=== PATIENT | male | born 1965 | race Caucasian/White ===

== ENCOUNTER 2017-08-21 08:23 | Outpatient (CLI) | payer OTHER | END 2017-08-21 08:24 | disposition home or self-care (01) | LOC: NS 08:23 | PROVIDERS: ATTEND Family Medicine | DX: Z71.3 Dietary counseling and surveillance (principal); E66.9 Obesity, unspecified; Z68.41 Body mass index [BMI] 40.0-44.9, adult | CPT/HCPCS: 97802 ==

== ENCOUNTER 2017-09-04 10:28 | Outpatient (CLI) | payer OTHER | END 2017-09-04 10:29 | disposition home or self-care (01) | LOC: NS 10:28 | PROVIDERS: ATTEND Family Medicine | DX: Z71.3 Dietary counseling and surveillance (principal); E66.9 Obesity, unspecified; Z68.41 Body mass index [BMI] 40.0-44.9, adult | CPT/HCPCS: 97803 ==

== ENCOUNTER 2019-02-11 19:00 | Outpatient (CLI) | payer OTHER ==
--- NOTE | 2019-02-11 20:12 | XRAY Report ---
Reason: LEFT 3RD/4TH FINGER PAIN Procedure Date: 02/11/2019 Accession Number: [id number] / [id number] Procedure: XR - Hand 3 View LT CPT Code: FULL RESULT: EXAM: LEFT HAND RADIOGRAPHY EXAM DATE: 02/11/2019 07:12 PM. CLINICAL HISTORY: Left 3rd/4th finger pain. Crush injury tonight. COMPARISON: None. TECHNIQUE: 3 views. FINDINGS: Bones: No definite acute fracture or bone lesion. Joints: No subluxation. Mild to moderate degenerative changes third and fourth PIP joints, noting marginal spurring. A tiny periarticular calcification dorsal to the fourth DIP joint. Soft Tissues: Probable swelling of the digits. IMPRESSION: 1. No acute bony abnormality identified. Follow-up per clinical discretion. 2. Degenerative changes of the IP joints. [facility] The call report notification system was initiated by Dr. Bull Key at 08:10 PM on 02/11/2019. ADDENDUM: 02/11/19 20:29 The above results were called to the covering physician by Dr. Bull Key at 08:29 PM on 02/11/2019.
== END 2019-02-11 19:01 | disposition home or self-care (01) ==
LOC: DI 19:00
PROVIDERS: ATTEND Physician Assistant
DX: M19.042 Primary osteoarthritis, left hand (principal)

== ENCOUNTER 2019-02-17 10:17 | Outpatient (CLI) | payer OTHER ==
--- NOTE | 2019-02-17 11:58 | XRAY Report ---
Reason: FRACTURE OF LEFT PHALANX MIDDLE FINGER Procedure Date: 02/17/2019 Accession Number: [id number] / [id number] Procedure: WCP - Hand 3 View LT CPT Code: FULL RESULT: EXAM: LEFT HAND RADIOGRAPHY EXAM DATE: 02/17/2019 10:34 AM. CLINICAL HISTORY: Fracture of left phalanx middle finger. COMPARISON: HAND 3 VIEW LT 02/11/2019 7:05 PM. TECHNIQUE: 3 views. FINDINGS: Bones: Known definite fracture is identified in the third finger. One view irregularity of the distal metadiaphysis of the proximal third phalanx persists on the current and prior study. If point tenderness is in this region of the third finger, this may represent a nondisplaced fracture. Subtle osseous fragment dorsal to the fourth distal interphalangeal joint is also redemonstrated. Joints: Normal. No subluxations. Soft Tissues: Mild soft tissue swelling is seen about the proximal third finger. IMPRESSION: Please correlate persistent subtle one view irregularity about the distal metadiaphysis of the proximal third phalanx for focal point tenderness as described. [facility]
== END 2019-02-17 23:59 | disposition home or self-care (01) ==
LOC: DI.WCP 10:17 → EDSTATUS 12:37 → DI.WCP 23:59
PROVIDERS: ATTEND Family Medicine
DX: S62.603A Fracture of unspecified phalanx of left middle finger, initial encounter for closed fracture (principal)

== ENCOUNTER 2019-03-24 08:01 | Outpatient (CLI) | payer OTHER ==
--- NOTE | 2019-03-24 16:47 | XRAY Report ---
Reason: LEFT MIDDLE FINGER PHALANX FRACTURE Procedure Date: 03/24/2019 Accession Number: [id number] / [id number] Procedure: WCP - Finger(s) LT CPT Code: Final Report FULL RESULT: EXAM: LEFT THIRD DIGIT RADIOGRAPHY EXAM DATE: 03/24/2019 08:01 AM. CLINICAL HISTORY: Left middle finger phalanx fracture. COMPARISON: HAND 3 VIEW LT 02/17/2019 10:14 AM HAND 3 VIEW LT 02/11/2019 7:05 PM. TECHNIQUE: 3 views. FINDINGS: Bones: No new osseous remodeling or fracture lines are detected. No fracture or bone lesion. Joints: Degenerative changes with proliferative changes at tendons insertions are again seen at multiple interphalangeal joints including the third proximal phalangeal metadiaphysis. Soft Tissues: There is a 2 mm linear hyperdensity projecting over the lateral soft tissues of the thumb at the proximal phalangeal diaphysis, unchanged over time and not in the area of clinical interest. IMPRESSION: Stable radiographic appearance of the third finger. No evidence of ongoing osseous remodeling or new fracture/dislocation. [facility]
== END 2019-03-24 23:59 | disposition home or self-care (01) ==
LOC: DI.WCP 08:01
PROVIDERS: ATTEND Family Medicine
DX: M19.042 Primary osteoarthritis, left hand (principal)
CPT/HCPCS: 73140

== ENCOUNTER 2020-03-27 08:00 | Outpatient (CLI) | payer OTHER ==
[2020-03-27 18:18] LABS: BASOPHILS % (AUTO) 0.5 %; EOSINOPHILS # (AUTO) 0.1 10^3/uL (0.0-0.7); EOSINOPHILS % (AUTO) 1.3 %; HGB - HEMOGLOBIN 13.3 g/dL (14.0-18.0); LYMPHOCYTES # (AUTO) 1.9 10^3/uL (1.5-3.5); LYMPHOCYTES % (AUTO) 22.3 %; MEAN CORPUSCULAR HGB CONC 31.4 g/dL (32.0-36.0); MEAN CORPUSCULAR VOLUME 95.3 fL (80.0-94.0); MEAN PLATELET VOLUME 9.5 fL (7.4-11.4); MONOCYTES # (AUTO) 0.8 10^3/uL (0.0-1.0); MONOCYTES % (AUTO) 9.3 %; NEUTROPHILS # (AUTO) 5.8 10^3/uL (1.5-6.6); NEUTROPHILS % (AUTO) 66.3 %; PLT - PLATELET COUNT 302 10^3/uL (130-450); RED BLOOD COUNT 4.44 10^6/uL (4.70-6.10); RED CELL DISTRIBUTION WIDTH 13.2 % (12.0-15.0); WHITE BLOOD COUNT 8.7 x10^3/uL (4.8-10.8)
[2020-03-27 19:14] LABS: ALBUMIN 4.1 g/dL (3.2-5.5); ALBUMIN/GLOBULIN RATIO 1.2 (1.0-2.2); ALKALINE PHOSPHATASE 73 IU/L (42-121); ALT ALANINE AMINOTRANSFERASE 24 IU/L (10-60); AST ASPARTATE AMINOTRANSFERASE 20 IU/L (10-42); BILIRUBIN,TOTAL 0.4 mg/dL (0.2-1.0); BUN - BLOOD UREA NITROGEN 18 mg/dL (6-20); CALCIUM 9.3 mg/dL (8.5-10.3); CARBON DIOXIDE - CO2 26 mmol/L (21-32); CHLORIDE 104 mmol/L (101-111); CHOL/HDL RATIO 5.9 (<5.0); CHOLESTEROL 224 mg/dL; CREATININE 1.3 mg/dL (0.6-1.2); CRP - C-REACTIVE PROTEIN 2.4 mg/dL (0-1.0); GLUCOSE 120 mg/dL (70-100); HDL CHOLESTEROL 38 mg/dL; SODIUM 141 mmol/L (135-145); TOTAL PROTEIN 7.5 g/dL (6.7-8.2); URIC ACID 7.4 mg/dL (2.6-7.2)
[2020-03-27 19:35] LABS: LDL CHOLESTEROL,DIRECT 145 mg/dL; LDLD/HDL RATIO 3.8 (<3.6)
[2020-03-27 19:46] LABS: HEMOGLOBIN A1c% 5.9 % (4.27-6.07)
== END 2020-03-27 23:59 | disposition home or self-care (01) ==
LOC: LAB.WCP 08:00
PROVIDERS: ATTEND Family Medicine
DX: I10 Essential (primary) hypertension (principal); E78.5 Hyperlipidemia, unspecified; Z12.5 Encounter for screening for malignant neoplasm of prostate; R73.01 Impaired fasting glucose; M25.50 Pain in unspecified joint
CPT/HCPCS: 36415; 80053; 80061; 83036; 83721; 84153; 84550; 85025; 85651; 86140

== ENCOUNTER 2020-06-26 08:00 | Outpatient (CLI) | payer OTHER ==
[2020-06-26 18:24] LABS: BASOPHILS # (AUTO) 0.1 10^3/uL (0.0-0.1); BASOPHILS % (AUTO) 0.9 %; EOSINOPHILS # (AUTO) 0.1 10^3/uL (0.0-0.7); HGB - HEMOGLOBIN 13.8 g/dL (14.0-18.0); LYMPHOCYTES # (AUTO) 2.1 10^3/uL (1.5-3.5); LYMPHOCYTES % (AUTO) 31.4 %; MEAN CORPUSCULAR HEMOGLOBIN 30.1 pg (27.0-31.0); MEAN CORPUSCULAR HGB CONC 31.5 g/dL (32.0-36.0); MEAN CORPUSCULAR VOLUME 95.4 fL (80.0-94.0); MEAN PLATELET VOLUME 9.5 fL (7.4-11.4); MONOCYTES # (AUTO) 0.6 10^3/uL (0.0-1.0); MONOCYTES % (AUTO) 8.6 %; NEUTROPHILS # (AUTO) 3.8 10^3/uL (1.5-6.6); NEUTROPHILS % (AUTO) 56.9 %; PLT - PLATELET COUNT 291 10^3/uL (130-450); RED BLOOD COUNT 4.59 10^6/uL (4.70-6.10); RED CELL DISTRIBUTION WIDTH 13.2 % (12.0-15.0); WHITE BLOOD COUNT 6.6 x10^3/uL (4.8-10.8)
[2020-06-26 18:49] LABS: ALBUMIN 4.3 g/dL (3.2-5.5); ALBUMIN/GLOBULIN RATIO 1.2 (1.0-2.2); ALKALINE PHOSPHATASE 73 IU/L (42-121); ALT ALANINE AMINOTRANSFERASE 24 IU/L (10-60); AST ASPARTATE AMINOTRANSFERASE 23 IU/L (10-42); BILIRUBIN,TOTAL 0.9 mg/dL (0.2-1.0); BUN - BLOOD UREA NITROGEN 16 mg/dL (6-20); CALCIUM 9.2 mg/dL (8.5-10.3); CARBON DIOXIDE - CO2 26 mmol/L (21-32); CHLORIDE 101 mmol/L (101-111); CHOLESTEROL 239 mg/dL; GLUCOSE 105 mg/dL (70-100); HDL CHOLESTEROL 45 mg/dL; TOTAL PROTEIN 7.9 g/dL (6.7-8.2); URIC ACID 8.2 mg/dL (2.6-7.2); VLDL CHOLESTEROL 40 mg/dL
[2020-06-26 18:50] LABS: CHOL/HDL RATIO 5.3 (<5.0); LDL CHOLESTEROL,CALCULATED 154 mg/dL; LDL/HDL RATIO 3.4 (<3.6)
== END 2020-06-26 23:59 | disposition home or self-care (01) ==
LOC: LAB.WCP 08:00
PROVIDERS: ATTEND Family Medicine
DX: E78.5 Hyperlipidemia, unspecified (principal); M10.9 Gout, unspecified
CPT/HCPCS: 36415; 80053; 80061; 83721; 84550; 85025

== ENCOUNTER 2020-10-10 13:22 | Day surgery (SDC) | payer OTHER ==
[2020-10-10] MEDS ORDERED: LACTATED RINGERS 1,000 ML IV ONE ×2 (13:28→15:45)
[2020-10-10] MEDS ORDERED: MIDAZOLAM 2 MG/2 ML VIAL ONE ×3 (15:01→15:26)
[2020-10-10] MEDS ORDERED: fentaNYL 250 MCG/5 ML VIAL ONE (15:01)
[2020-10-10 16:09] VITALS: BP 131/74
== END 2020-10-10 13:23 | disposition home or self-care (01) ==
LOC: SDS 13:22
PROVIDERS: ATTEND Surgery
PROC: 0DBP8ZZ Excision of Rectum, Via Natural or Artificial Opening Endoscopic (ICD-10-PCS; principal; 2020-10-10 14:30)
DX: Z12.11 Encounter for screening for malignant neoplasm of colon (principal); K62.0 Anal polyp; K64.8 Other hemorrhoids; K57.30 Diverticulosis of large intestine without perforation or abscess without bleeding
CPT/HCPCS: 45380; J3010; J7120

== ENCOUNTER 2023-12-09 10:06 | Outpatient (CLI) | payer OTHER ==
--- NOTE | 2023-12-09 11:59 | XRAY Report ---
PROCEDURE: Foot 3+V BL (Weight Bearing) INDICATIONS: BILATERAL FOOT PAIN TECHNIQUE: 3 views of the foot were acquired. COMPARISON: None. FINDINGS/IMPRESSION: Right foot: Posterior calcaneal and plantar calcaneal enthesophyte. Mild pes planus. Mild degenerativ e change of the first metatarsophalangeal joint in the second proximal interphalangeal joint. No acut e fracture or dislocation. Left foot: Posterior calcaneal and plantar calcaneal enthesophyte. mild degenerative changes of the f irst metatarsophalangeal joint and the third metatarsophalangeal joint. No acute fracture or dislocat ion. Reviewed by: Taty Vickers MD on 12/09/2023 11:58 AM PDT Approved by: Taty Vickers MD on 12/09/2023 11:58 AM PDT Station ID: [id number]
== END 2023-12-09 10:07 | disposition home or self-care (01) ==
LOC: DI 10:06
PROVIDERS: ATTEND Podiatrist
DX: M77.32 Calcaneal spur, left foot (principal); M77.31 Calcaneal spur, right foot; M21.41 Flat foot [pes planus] (acquired), right foot; M19.072 Primary osteoarthritis, left ankle and foot; M19.071 Primary osteoarthritis, right ankle and foot